=== PATIENT | male | born 1950 | race Caucasian/White ===

== ENCOUNTER 2016-07-14 13:21 | Emergency (ER) | payer SELFPAY ==
[~2016-07-14] VITALS: Ht 177.8 cm; Wt 81.0 kg
[~2016-07-14 13:21] MED LIST: COREG25 MG PO; CREON 241 CAPSULE PO; CYANOCOBAL1000 MCG/2 IM; ELAVIL10 MG PO; K-DUR20 MEQ PO; NORVASC10 MG PO; PRILOSEC40 MG PO; PRINIVIL5 MG PO; TYLENOL EXTRA500 MG PO; Tums,OsCal PO; VIT B 12 IM; VITAMIN D250000 UNIT PO; ZESTRIL,PRINIVIL5 MG PO; [UNRECOGNIZED DRUG - REMARK]
[2016-07-14 14:14] LABS: EOSINOPHIL (%) 0.2 % (0-5); HEMATOCRIT 43.1 % (38.0-50.0); IMMATURE GRANULOCYTE (%) 0.2 % (0.0-0.7); IMMATURE GRANULOCYTE COUNT 0.1 K/uL; LYMPHOCYTE COUNT 0.8 K/uL (1.0-2.8); MCH 30.5 PG (29.0-34.0); MCHC 36.2 G/DL (30.0-36.0); MCV 84.2 FL (86-99); MEAN PLAT.VOLUME 10.5 uM^3 (9.0-12.4); MONOCYTE (%) 12.4 % (3-12); MONOCYTE COUNT 0.7 K/uL (0-0.8); NEUTROPHIL COUNT 4.2 K/uL (1.8-6.4); PLATELET COUNT 164 K/uL (156-360); RBC DIS.WIDTH-CV 13.2 % (11.8-14.6); RBC DIS.WIDTH-SD 39.9 % (39-53); RED BLOOD COUNT 5.12 M/uL (4.00-5.50); WHITE BLOOD COUNT 5.8 K/uL (4.1-10.2)
[2016-07-14 14:26] LABS: CHLORIDE 101 mEq/L (99-109); POTASSIUM 3.3 mEq/L (3.7-5.4); SODIUM 140 mEq/L (136-147)
[2016-07-14 14:27] LABS: GLUCOSE 103 mg/dL (70-99)
[2016-07-14 14:29] LABS: ANION GAP 10 MEQ/L (2-14)
[2016-07-14 14:31] LABS: GFR ESTIMATE (CALCULATED) > 59 mL/min/
[2016-07-14 14:32] LABS: UREA NITROGEN (BUN) 17 mg/dL (9-23)
[2016-07-14] MEDS ORDERED: ZITHROMAX250 MG PO (18:42)
[2016-07-14 18:59] VITALS: BP 143/82
== END 2016-07-14 19:32 | disposition home or self-care (01) ==
LOC: EME 13:21
DX: J40 Bronchitis, not specified as acute or chronic (principal)
CPT/HCPCS: 71020; 80048; 81003; 83605; 85025; 99281; 99284

== ENCOUNTER 2016-09-19 13:14 | Emergency (ER) | payer SELFPAY ==
[~2016-09-19] VITALS: Ht 180.3 cm; Wt 80.5 kg
[~2016-09-19 13:14] MED LIST changes: +ZITHROMAX250 MG PO
[2016-09-19 16:11] LABS: HEMATOCRIT 43.9 % (38.0-50.0); MCH 29.9 PG (29.0-34.0); MCHC 34.2 G/DL (30.0-36.0); MCV 87.5 FL (86-99); MEAN PLAT.VOLUME 10.5 uM^3 (9.0-12.4); PLATELET COUNT 168 K/uL (156-360); RBC DIS.WIDTH-CV 13.3 % (11.8-14.6); RBC DIS.WIDTH-SD 42.5 % (39-53); RED BLOOD COUNT 5.02 M/uL (4.00-5.50); WHITE BLOOD COUNT 9.7 K/uL (4.1-10.2)
[2016-09-19 16:23] LABS: CHLORIDE 106 mEq/L (99-109); POTASSIUM 4.1 mEq/L (3.7-5.4); SODIUM 142 mEq/L (136-147)
[2016-09-19 16:25] LABS: GLUCOSE 102 mg/dL (70-99)
[2016-09-19 16:26] LABS: ANION GAP 12 MEQ/L (2-14)
[2016-09-19 16:28] LABS: GFR ESTIMATE (CALCULATED) > 59 mL/min/
[2016-09-19 16:29] LABS: UREA NITROGEN (BUN) 12 mg/dL (9-23)
[2016-09-19 16:37] LABS: INTER. NORMALIZED RATIO 1.2; PROTHROMBIN TIME 12.6 (9.2-11.2); PTT 26.2 (25-32)
[2016-09-19 18:07] LABS: FIBRINOGEN 101 MG/DL (160-450)
[2016-09-19 20:23] VITALS: BP 155/80
[2016-09-19] MEDS ORDERED: PERCOCET 5/31 TABLET PO (21:08)
[2016-09-19] MEDS ORDERED: KEFLEX500 MG PO (21:09)
[2016-09-19 21:15] VITALS: BP 153/77
[2016-09-19 21:40] VITALS: BP 147/79
[2016-09-19 22:04] VITALS: BP 140/82
[2016-09-19 22:45] VITALS: BP 146/87
[2016-09-20 02:54] VITALS: BP 139/80
== END 2016-09-20 02:55 | disposition home or self-care (01) ==
LOC: EME → TRA 13:14 → EME 09-20 02:55
PROVIDERS: Emergency Medicine
DX: S68.624A Partial traumatic transphalangeal amputation of right ring finger, initial encounter (principal); W31.1XXA Contact with metalworking machines, initial encounter; Y93.89 Activity, other specified; D68.9 Coagulation defect, unspecified; Z23 Encounter for immunization
CPT/HCPCS: 73130; 80048; 85027; 85384; 85610; 85730; 86900; 86901; 86965; 99281; 99285; J0690; J2270; J3010; J7050; P9012